=== PATIENT | female | born 1995 | race Caucasian/White ===

== ENCOUNTER 2017-01-01 18:38 | Emergency (ER) | payer OTHER, MEDICAID ==
[2017-01-01 19:03] VITALS: BP 121/73
[2017-01-01 20:13] LABS: CHLORIDE,CL 104 mmol/L (101-111); SODIUM,NA 136 mmol/L (135-145)
--- NOTE | 2017-01-01 20:52 | EDM.PDOC ---
{null, ED HPI GENERAL MEDICAL PROBLEM - General Chief Complaint: Headache Stated Complaint: 6 WEEKS PAIN [id number] Time Seen by Provider: 01/01/17 20:49 Source of Information: Reports: Patient History Limitations: Reports: No Limitations - History of Present Illness INITIAL COMMENTS - FREE TEXT/NARRATIVE: states 6 weeks , onset today not going away. states Dx with pre-eclamp with last baby needed emergency . 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: , Other (See Below) Other OB/BYN History: preeclampsia Neurological History: Reports: Migraines Psychiatric History: Reports: Anxiety, Depression - Past Surgical History Other HEENT Surgeries/Procedures: lacrimal duct opened up at age 2 Female Surgical History: Reports: Section Social & Family History - Family History Family Medical History: Noncontributory - Tobacco Use Smoking Status *Q: Never Smoker Second Hand Smoke Exposure: No - Alcohol Use Days Per Week of Alcohol Use: 0 - Recreational Drug Use Recreational Drug Use: No - Living Situation & Occupation Living situation: Reports: with Significant Other ED ROS GENERAL - Review of Systems Review Of Systems: ROS reveals no pertinent complaints other than HPI. - Physical Exam Exam: See Below Exam Limited By: No Limitations General Appearance: Alert, WD/WN, Mild Distress, Other (disocmfort) Eye Exam: Bilateral Eye: PERRL (pupils ER @ 4mm) Ears: Hearing Grossly Normal Throat/Mouth: Normal Voice, No Airway Compromise Head Exam: Atraumatic Neck: Non-Tender, Full Range of Motion Respiratory/Chest: No Respiratory Distress Cardiovascular: Regular Rate, Rhythm GI/Abdominal: Soft, Non-Tender Neuro Exam (Abbreviated): Alert, Oriented, Normal Cognition, Normal Gait, No Motor/Sensory Deficits Psychiatric: Flat Affect Skin Exam: Warm, Dry Course - Vital Signs Last Recorded V/S: Last Vital Signs Temp 37.2 C 01/01/17 18:59 Pulse 86 01/01/17 18:59 Resp 18 01/01/17 18:59 BP 121/73 01/01/17 18:59 Pulse Ox 98 01/01/17 18:59 - Orders/Labs/Meds Labs: Laboratory Tests 01/01/17 01/01/17 01/01/17 Range/Units 19:30 19:45 19:46 WBC 9.6 (5.0-10.0) 10^3/uL RBC 4.28 (4.2-5.4) 10^6/uL Hgb 13.2 (12.0-16.0) g/dL Hct 39.3 (37.0-47.0) % MCV 91.8 (80-100) fL MCH 30.8 (27.0-34.0) pg MCHC 33.6 (33.0-35.0) g/dL Plt Count 163 (150-450) 10^3/uL Neut % (Auto) 60.1 (42.2-75.2) % Lymph % (Auto) 32.9 (20.5-50.1) % [place] % (Auto) 5.9 (2-8) % Eos % (Auto) 1.0 (1.0-3.0) % Baso % (Auto) 0.1 (0.0-1.0) % Sodium (135-145) mmol/L Potassium (3.6-5.0) mmol/L Chloride (101-111) mmol/L Carbon Dioxide (21.0-31.0) mmol/L Anion Gap BUN (7-18) mg/dL Creatinine (0.6-1.3) mg/dL Est Cr Clr Drug Dosing mL/min Estimated GFR (MDRD) BUN/Creatinine Ratio Glucose (74-105) mg/dL Calcium (8.4-10.2) mg/dl Total Bilirubin (0.2-1.0) mg/dL AST (10-42) IU/L ALT (10-60) IU/L Alkaline Phosphatase (42-121) IU/L Total Protein (6.7-8.2) g/dl Albumin (3.2-5.5) g/dl Globulin Albumin/Globulin Ratio HCG, Quant > 1370 H (0-25) mIU/ml Beta HCG, Quant 00773 mIU/ml Urine Color Light yellow (YELLOW) Urine Appearance Slightly cloudy (CLEAR) Urine pH 7.0 (5.0-9.0) Ur Specific [place] 1.020 (1.005-1.030) Urine Protein Negative (NEGATIVE) Urine Glucose (UA) Negative (NEGATIVE) Urine Ketones Negative (NEGATIVE) Urine Occult Blood Negative (NEGATIVE) Urine Nitrite Negative (NEGATIVE) Urine Bilirubin Negative (NEGATIVE) Urine Urobilinogen 0.2 (0.2-1.0) mg/dL Ur Leukocyte Esterase Negative (NEGATIVE) Urine RBC 0-5 /HPF Urine WBC 0-5 (0-5/HPF) /HPF Ur Epithelial Cells Many H /HPF Urine Bacteria Many H (0-FEW/HPF) /HPF Urine Mucus Few H /LPF 01/01/17 Range/Units 19:46 WBC (5.0-10.0) 10^3/uL RBC (4.2-5.4) 10^6/uL Hgb (12.0-16.0) g/dL Hct (37.0-47.0) % MCV (80-100) fL MCH (27.0-34.0) pg MCHC (33.0-35.0) g/dL Plt Count (150-450) 10^3/uL Neut % (Auto) (42.2-75.2) % Lymph % (Auto) (20.5-50.1) % [place] % (Auto) (2-8) % Eos % (Auto) (1.0-3.0) % Baso % (Auto) (0.0-1.0) % Sodium 136 (135-145) mmol/L Potassium 3.9 (3.6-5.0) mmol/L Chloride 104 (101-111) mmol/L Carbon Dioxide 25.0 (21.0-31.0) mmol/L Anion Gap 10.9 BUN 10 (7-18) mg/dL Creatinine 0.6 (0.6-1.3) mg/dL Est Cr Clr Drug Dosing 123.72 mL/min Estimated GFR (MDRD) > 60 BUN/Creatinine Ratio 16.66 Glucose 85 (74-105) mg/dL Calcium 9.1 (8.4-10.2) mg/dl Total Bilirubin 0.4 (0.2-1.0) mg/dL AST 19 (10-42) IU/L ALT 31 (10-60) IU/L Alkaline Phosphatase 63 (42-121) IU/L Total Protein 7.1 (6.7-8.2) g/dl Albumin 4.3 (3.2-5.5) g/dl Globulin 2.8 Albumin/Globulin Ratio 1.54 HCG, Quant (0-25) mIU/ml Beta HCG, Quant mIU/ml Urine Color (YELLOW) Urine Appearance (CLEAR) Urine pH (5.0-9.0) Ur Specific [place] (1.005-1.030) Urine Protein (NEGATIVE) Urine Glucose (UA) (NEGATIVE) Urine Ketones (NEGATIVE) Urine Occult Blood (NEGATIVE) Urine Nitrite (NEGATIVE) Urine Bilirubin (NEGATIVE) Urine Urobilinogen (0.2-1.0) mg/dL Ur Leukocyte Esterase (NEGATIVE) Urine RBC /HPF Urine WBC (0-5/HPF) /HPF Ur Epithelial Cells /HPF Urine Bacteria (0-FEW/HPF) /HPF Urine Mucus /LPF - Re-Assessments/Exams Free Text/Narrative Re-Assessment/Exam: 01/01/17 20:51 results discussed with Pt Departure - Departure Time of Disposition: 20:51 Disposition: Home, Self-Care 01 Condition: good Clinical Impression: Migraine - Discharge Information Instructions: General Headache Without Cause, [id number] Forms: ED Department Discharge Additional Instructions: 1) rest and avoid vigorous activities 2) follow up with OB doctor or recheck as needed 3) try tylenol for headache. }
== END 2017-01-01 20:55 | disposition home or self-care (01) ==
LOC: DL.ED 18:38
DX: O99.89 Other specified diseases and conditions complicating pregnancy, childbirth and the puerperium (principal); G43.909 Migraine, unspecified, not intractable, without status migrainosus; F41.9 Anxiety disorder, unspecified; F32.9 Major depressive disorder, single episode, unspecified; Z91.09 Other allergy status, other than to drugs and biological substances; Z79.899 Other long term (current) drug therapy; Z3A.01 Less than 8 weeks gestation of pregnancy
CPT/HCPCS: 36415; 80053; 81001; 84702; 85025; 99284

== ENCOUNTER 2017-01-31 22:03 | Emergency (ER) | payer OTHER, MEDICAID ==
[2017-01-31 22:09] VITALS: BP 122/74
[2017-01-31] MEDS ORDERED: Sodium Chloride 0.9% 1,000 ML IV ONE (22:29)
[2017-01-31] MEDS ORDERED: Metoclopramide 10 MG/2 ML SDV IVPUSH ONE (22:30)
[2017-01-31 23:04] LABS: CHLORIDE,CL 105 mmol/L (101-111); SODIUM,NA 138 mmol/L (135-145)
--- NOTE | 2017-01-31 23:07 | EDM.PDOC ---
ED HPI GENERAL MEDICAL PROBLEM - General Chief Complaint: Gastrointestinal Problem Stated Complaint: VOMITING, [id number] Time Seen by Provider: 01/31/17 22:15 Source of Information: Reports: Patient History Limitations: Reports: No Limitations - History of Present Illness INITIAL COMMENTS - FREE TEXT/NARRATIVE: C/O nausea, vomiting, and feeling week. Unable to keep anything down today, greater than 8 emesis, Notes approximately 10 weeks and has been anuseated through , today, Zofran not helping. PCP Dr. Rowell. US done last week. Due date 08/30/17. 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) Other OB/BYN History: preeclampsia Neurological History: Reports: Migraines Psychiatric History: Reports: Anxiety, Depression - Past Surgical History Other HEENT Surgeries/Procedures: lacrimal duct opened up at age 2 Female Surgical History: Reports: Section Social & Family History - Family History Family Medical History: Noncontributory - Tobacco Use Smoking Status *Q: Never Smoker Second Hand Smoke Exposure: No - Alcohol Use Days Per Week of Alcohol Use: 0 - Recreational Drug Use Recreational Drug Use: No - Living Situation & Occupation Living situation: Reports: with Significant Other ED ROS GENERAL - Review of Systems Review Of Systems: ROS reveals no pertinent complaints other than HPI. ED EXAM, GI/ABD - Physical Exam Exam: See Below Exam Limited By: No Limitations General Appearance: Alert, Mild Distress Eyes: Bilateral: EOMI Ears: Normal External Exam Nose: Normal Inspection Throat/Mouth: Normal Inspection Head: Atraumatic, Normocephalic Neck: Normal Inspection Respiratory/Chest: No Respiratory Distress, Lungs Clear, Normal Breath Sounds Cardiovascular: Normal Peripheral Pulses, Regular Rate, Rhythm GI/Abdominal: Normal Bowel Sounds, Soft, Tenderness (generalized upper below ) Course - Vital Signs Last Recorded V/S: Last Vital Signs Temp 96.9 F 01/31/17 22:06 Pulse 99 01/31/17 22:06 Resp 18 01/31/17 22:06 BP 122/74 01/31/17 22:06 Pulse Ox 100 01/31/17 22:06 - Orders/Labs/Meds Labs: Laboratory Tests 01/31/17 01/31/17 01/31/17 Range/Units 22:34 22:34 23:11 WBC 10.8 H (5.0-10.0) 10^3/uL RBC 4.28 (4.2-5.4) 10^6/uL Hgb 13.1 (12.0-16.0) g/dL Hct 39.1 (37.0-47.0) % MCV 91.4 (80-100) fL MCH 30.6 (27.0-34.0) pg MCHC 33.5 (33.0-35.0) g/dL Plt Count 170 (150-450) 10^3/uL Neut % (Auto) 70.8 (42.2-75.2) % Lymph % (Auto) 23.1 (20.5-50.1) % [place] % (Auto) 5.4 (2-8) % Eos % (Auto) 0.6 L (1.0-3.0) % Baso % (Auto) 0.1 (0.0-1.0) % Sodium 138 (135-145) mmol/L Potassium 3.7 (3.6-5.0) mmol/L Chloride 105 (101-111) mmol/L Carbon Dioxide 22.0 (21.0-31.0) mmol/L Anion Gap 14.7 BUN 8 (7-18) mg/dL Creatinine 0.5 L (0.6-1.3) mg/dL Est Cr Clr Drug Dosing 147.23 mL/min Estimated GFR (MDRD) > 60 BUN/Creatinine Ratio 16.00 Glucose 80 (74-105) mg/dL Calcium 9.1 (8.4-10.2) mg/dl Total Bilirubin 0.9 (0.2-1.0) mg/dL AST 19 (10-42) IU/L ALT 23 (10-60) IU/L Alkaline Phosphatase 56 (42-121) IU/L Total Protein 7.1 (6.7-8.2) g/dl Albumin 4.0 (3.2-5.5) g/dl Globulin 3.1 Albumin/Globulin Ratio 1.29 Urine Color Dark yellow (YELLOW) Urine Appearance Turbid (CLEAR) Urine pH 6.5 (5.0-9.0) Ur Specific [place] 1.025 (1.005-1.030) Urine Protein 30 H (NEGATIVE) Urine Glucose (UA) Negative (NEGATIVE) Urine Ketones >=160 H (NEGATIVE) Urine Occult Blood Negative (NEGATIVE) Urine Nitrite Negative (NEGATIVE) Urine Bilirubin Small H (NEGATIVE) Urine Urobilinogen 1.0 (0.2-1.0) mg/dL Ur Leukocyte Esterase Negative (NEGATIVE) Urine RBC 5-10 H /HPF Urine WBC 10-20 H (0-5/HPF) /HPF Ur Epithelial Cells Moderate H /HPF Urine Bacteria Many H (0-FEW/HPF) /HPF Urine Mucus Moderate H /LPF Meds: Medications Discontinued Medications Generic Name Dose Route Start Last Admin Trade Name Odette PRN Reason Stop Dose Admin Sodium Chloride 1,000 mls @ 999 mls/hr 01/31/17 22:29 01/31/17 22:36 Normal Saline IV 01/31/17 23:29 999 mls/hr .BOLUS ONE Administration Metoclopramide HCl 10 mg 01/31/17 22:30 01/31/17 22:38 Reglan IVPUSH 01/31/17 22:31 10 mg ONETIME ONE Administration Departure - Departure Time of Disposition: 23:39 Disposition: Home, Self-Care 01 Condition: Fair Clinical Impression: First trimester Hyperemesis Qualifiers: Vomiting type: unspecified Nausea presence: with nausea Qualified Code(s): R11.2 - Nausea with vomiting, unspecified - Discharge Information Instructions: Dehydration, Adult, [id number] Forms: ED Department Discharge Additional Instructions: zofran as previous order by PCP for nausea gradual increase in diet starting with small sips follow up with Dr. Rowell tomorrow morning
== END 2017-01-31 23:53 | disposition home or self-care (01) ==
LOC: DL.ED 22:03
DX: O21.9 Vomiting of pregnancy, unspecified (principal); G43.909 Migraine, unspecified, not intractable, without status migrainosus; Z91.048 Other nonmedicinal substance allergy status; Z79.899 Other long term (current) drug therapy; Z3A.10 10 weeks gestation of pregnancy
CPT/HCPCS: 36415; 80053; 81001; 85025; 96374; 99283; J2765; J7030

== ENCOUNTER 2017-02-26 17:36 | Emergency (ER) | payer OTHER, MEDICAID ==
--- NOTE | 2017-02-26 18:38 | EDM.PDOC ---
<Chetan Fontenot - Last Filed: 02/26/17 19:15> ED HPI GENERAL MEDICAL PROBLEM - General Chief Complaint: Neurological Problem Stated Complaint: 13 weeks marie on the right side [id number] Time Seen by Provider: 02/26/17 18:15 Source of Information: Reports: Patient History Limitations: Reports: No Limitations - History of Present Illness INITIAL COMMENTS - FREE TEXT/NARRATIVE: 22 yo female presents with c/o dizziness and numbness to her hands. States that she was outside and went into the house and started having dizziness and n/ v. States n/v is normal as she is 13 weeks . States that she is having difficulty remembering things and getting her words out. Significant other at bedside states that patient can not speak at times. Pt A&O upon arrival. c/o numbness to left hand and right leg. denies other symptoms. 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) Other OB/BYN History: preeclampsia Neurological History: Reports: Migraines Psychiatric History: Reports: Anxiety, Depression - Past Surgical History Other HEENT Surgeries/Procedures: lacrimal duct opened up at age 2 Female Surgical History: Reports: Section Social & Family History - Family History Family Medical History: Noncontributory - Tobacco Use Smoking Status *Q: Never Smoker Second Hand Smoke Exposure: No - Alcohol Use Days Per Week of Alcohol Use: 0 - Recreational Drug Use Recreational Drug Use: No - Living Situation & Occupation Living situation: Reports: with Significant Other ED ROS GENERAL - Review of Systems Review Of Systems: ROS reveals no pertinent complaints other than HPI. ED EXAM, NEURO - Physical Exam Exam: See Below Exam Limited By: No Limitations General Appearance: Alert, WD/WN, No Apparent Distress Eye Exam: Bilateral Eye: PERRL Nose: Normal Inspection, Normal Mucosa, No Blood Throat/Mouth: Normal Inspection, Normal Lips, Normal Teeth, Normal Gums, Normal Oropharynx, Normal Voice, No Airway Compromise Head Exam: Atraumatic, Normocephalic Neck: Normal Inspection, Supple, Non-Tender, Full Range of Motion Respiratory/Chest: No Respiratory Distress, Lungs Clear, Normal Breath Sounds, No Accessory Muscle Use, Chest Non-Tender Cardiovascular: Normal Peripheral Pulses, Regular Rate, Rhythm, No Edema, No Gallop, No JVD, No Murmur, No Rub GI/Abdominal: Normal Bowel Sounds, Soft, Non-Tender, No Organomegaly, No Distention, No Abnormal Bruit, No Mass Neurological: Alert, Normal Mood/Affect, Normal Dorsiflexion, CN II-XII Intact, Normal Plantar Flexion, Normal Gait, Normal Reflexes, No Motor/Sensory Deficits , Oriented x 3 Extremities: Normal Inspection, Normal Range of Motion, Non-Tender, No Pedal Edema, Normal Capillary Refill Skin Exam: Warm, Dry, Intact, Normal Color, No Rash Course - Vital Signs Last Recorded V/S: Last Vital Signs Temp 36.5 C 02/26/17 17:40 Pulse 105 H 02/26/17 17:40 Resp 16 02/26/17 17:40 BP 134/90 02/26/17 17:40 Pulse Ox 99 02/26/17 17:40 - Orders/Labs/Meds Labs: Laboratory Tests 02/26/17 02/26/17 02/26/17 Range/Units 17:50 17:50 17:55 WBC (5.0-10.0) 10^3/uL RBC (4.2-5.4) 10^6/uL Hgb (12.0-16.0) g/dL Hct (37.0-47.0) % MCV (80-100) fL MCH (27.0-34.0) pg MCHC (33.0-35.0) g/dL Plt Count (150-450) 10^3/uL Neut % (Auto) (42.2-75.2) % Lymph % (Auto) (20.5-50.1) % [place] % (Auto) (2-8) % Eos % (Auto) (1.0-3.0) % Baso % (Auto) (0.0-1.0) % Sodium (135-145) mmol/L Potassium (3.6-5.0) mmol/L Chloride (101-111) mmol/L Carbon Dioxide (21.0-31.0) mmol/L Anion Gap BUN (7-18) mg/dL Creatinine (0.6-1.3) mg/dL Est Cr Clr Drug Dosing mL/min Estimated GFR (MDRD) BUN/Creatinine Ratio Glucose (74-105) mg/dL POC Glucose 75 (70-105) mg/dl Calcium (8.4-10.2) mg/dl Total Bilirubin (0.2-1.0) mg/dL AST (10-42) IU/L ALT (10-60) IU/L Alkaline Phosphatase (42-121) IU/L Total Protein (6.7-8.2) g/dl Albumin (3.2-5.5) g/dl Globulin Albumin/Globulin Ratio HCG, Quant (0-25) mIU/ml Beta HCG, Quant mIU/ml Urine Color Yellow (YELLOW) Urine Appearance Cloudy (CLEAR) Urine pH 7.5 (5.0-9.0) Ur Specific [place] 1.020 (1.005-1.030) Urine Protein 30 H (NEGATIVE) Urine Glucose (UA) Negative (NEGATIVE) Urine Ketones 15 H (NEGATIVE) Urine Occult Blood Negative (NEGATIVE) Urine Nitrite Negative (NEGATIVE) Urine Bilirubin Negative (NEGATIVE) Urine Urobilinogen 1.0 (0.2-1.0) mg/dL Ur Leukocyte Esterase Negative (NEGATIVE) Urine RBC 0-5 /HPF Urine WBC 0-5 (0-5/HPF) /HPF Ur Epithelial Cells Moderate H /HPF Amorphous Sediment Many H (0/HPF) /HPF Urine Bacteria Moderate H (0-FEW/HPF) /HPF Urine Opiates Screen Negative (NEGATIVE) Ur Oxycodone Screen Negative (NEGATIVE) Urine Methadone Screen Negative (NEGATIVE) Ur Barbiturates Screen Negative (NEGATIVE) U Tricyclic Antidepress Negative (NEGATIVE) Ur Phencyclidine Scrn Negative (NEGATIVE) Ur Amphetamine Screen Negative (NEGATIVE) U Methamphetamines Scrn Negative (NEGATIVE) Urine MDMA Screen Negative (NEGATIVE) U Benzodiazepines Scrn Negative (NEGATIVE) Urine Cocaine Screen Negative (NEGATIVE) U Marijuana (THC) Screen Negative (NEGATIVE) 07/16/17 07/16/17 07/16/17 Range/Units 18:54 18:54 18:54 WBC 10.0 (5.0-10.0) 10^3/uL RBC 3.97 L (4.2-5.4) 10^6/uL Hgb 12.4 (12.0-16.0) g/dL Hct 36.4 L (37.0-47.0) % MCV 91.7 (80-100) fL MCH 31.2 (27.0-34.0) pg MCHC 34.1 (33.0-35.0) g/dL Plt Count 139 L (150-450) 10^3/uL Neut % (Auto) 67.8 (42.2-75.2) % Lymph % (Auto) 26.4 (20.5-50.1) % [place] % (Auto) 4.5 (2-8) % Eos % (Auto) 1.2 (1.0-3.0) % Baso % (Auto) 0.1 (0.0-1.0) % Sodium 136 (135-145) mmol/L Potassium 3.6 (3.6-5.0) mmol/L Chloride 104 (101-111) mmol/L Carbon Dioxide 21.0 (21.0-31.0) mmol/L Anion Gap 14.6 BUN 7 (7-18) mg/dL Creatinine 0.5 L (0.6-1.3) mg/dL Est Cr Clr Drug Dosing 147.23 mL/min Estimated GFR (MDRD) > 60 BUN/Creatinine Ratio 14.00 Glucose 80 (74-105) mg/dL POC Glucose (70-105) mg/dl Calcium 8.8 (8.4-10.2) mg/dl Total Bilirubin 0.6 (0.2-1.0) mg/dL AST 13 (10-42) IU/L ALT 14 (10-60) IU/L Alkaline Phosphatase 51 (42-121) IU/L Total Protein 6.8 (6.7-8.2) g/dl Albumin 3.8 (3.2-5.5) g/dl Globulin 3.0 Albumin/Globulin Ratio 1.27 HCG, Quant > 1370 H (0-25) mIU/ml Beta HCG, Quant 75741 mIU/ml Urine Color (YELLOW) Urine Appearance (CLEAR) Urine pH (5.0-9.0) Ur Specific [place] (1.005-1.030) Urine Protein (NEGATIVE) Urine Glucose (UA) (NEGATIVE) Urine Ketones (NEGATIVE) Urine Occult Blood (NEGATIVE) Urine Nitrite (NEGATIVE) Urine Bilirubin (NEGATIVE) Urine Urobilinogen (0.2-1.0) mg/dL Ur Leukocyte Esterase (NEGATIVE) Urine RBC /HPF Urine WBC (0-5/HPF) /HPF Ur Epithelial Cells /HPF Amorphous Sediment (0/HPF) /HPF Urine Bacteria (0-FEW/HPF) /HPF Urine Opiates Screen (NEGATIVE) Ur Oxycodone Screen (NEGATIVE) Urine Methadone Screen (NEGATIVE) Ur Barbiturates Screen (NEGATIVE) U Tricyclic Antidepress (NEGATIVE) Ur Phencyclidine Scrn (NEGATIVE) Ur Amphetamine Screen (NEGATIVE) U Methamphetamines Scrn (NEGATIVE) Urine MDMA Screen (NEGATIVE) U Benzodiazepines Scrn (NEGATIVE) Urine Cocaine Screen (NEGATIVE) U Marijuana (THC) Screen (NEGATIVE) - Re-Assessments/Exams Free Text/Narrative Re-Assessment/Exam: 02/26/17 18:46 Spoke with pt about CT head and . States that she will agree to CT head with abdominal coverage. Informed that there is still a risk to the fetus, however patient agrees. Departure - Departure Disposition: Home, Self-Care 01 Clinical Impression: Paresthesia - Discharge Information Forms: ED Department Discharge Additional Instructions: 1) rest 2) follow up with family doctor tomorrow or recheck if there is any change or concern <Samm Estrada - Last Filed: 02/26/17 20:24> ED HPI GENERAL MEDICAL PROBLEM Headache Pain Score (Numeric/FACES): 7 Course - Re-Assessments/Exams Free Text/Narrative Re-Assessment/Exam: 02/26/17 19:57 re-exam; feeling better but likes to have FHT done. 02/26/17 20:19 OB arrived FHT 145. pt & spouse happier. wants to go home. Departure - Departure Time of Disposition: 20:20 Condition: Good
[2017-02-26 18:49] VITALS: BP 134/90
--- NOTE | 2017-02-26 19:03 | CT ---
Clinical history: 22-year-old gravid female with nausea, vomiting, dizziness and "memory loss". No k nown trauma. Scan technique: Volume acquisition of data emergency unenhanced CT scan of the head and brain (patie nt shielded) obtained while the patient was lying supine on the Siemens multi slice scanner [place], [place]. All data archived in the PACS system for storage, reformatt ing and study. Interpretation: Negative exam. Uniformly thick bony calvarium without sign of skull fracture or underlying brain contusion or epidu ral/subdural hematoma. Symmetric normal peck-white matter pattern and underlying mirror-image normal ventricular system. No supratentorial or posterior fossa mass lesion. Cerebellum and brainstem unremarkable. Midline fal cine calcifications. Symmetric clear pneumatization normal appearing mastoid and paranasal sinuses.
[2017-02-26 19:21] LABS: CHLORIDE,CL 104 mmol/L (101-111); SODIUM,NA 136 mmol/L (135-145)
== END 2017-02-26 20:33 | disposition home or self-care (01) ==
LOC: DL.ED 17:36
DX: O99.89 Other specified diseases and conditions complicating pregnancy, childbirth and the puerperium (principal); R20.9 Unspecified disturbances of skin sensation; G43.909 Migraine, unspecified, not intractable, without status migrainosus; Z91.048 Other nonmedicinal substance allergy status; Z79.899 Other long term (current) drug therapy; Z3A.13 13 weeks gestation of pregnancy
CPT/HCPCS: 36415; 70450; 80053; 80305; 81001; 82962; 84702; 85025; 99284

== ENCOUNTER 2017-03-02 18:38 | Emergency (ER) | payer MEDICAID, OTHER | END 2017-03-02 20:44 | disposition left against medical advice (07) | LOC: DL.ED 18:38 | DX: Z53.21 Procedure and treatment not carried out due to patient leaving prior to being seen by health care provider (principal) ==